=== PATIENT | male | born 1985 | race American Indian/Alaskan Native ===

== ENCOUNTER 2018-03-15 07:24 | Day surgery (SDC) | payer OTHER ==
[2018-03-15 07:56] VITALS: BMI 23.8
[2018-03-15] MEDS ORDERED: (Novolin R) Insulin Human Regular 100 units/ml vial IV ONE (08:15)
[2018-03-15] MEDS ORDERED: Propofol 10 mg/ml Inj (20 ML) ONE (09:40)
--- NOTE | 2018-03-15 09:44 | CP.SDSHP ---
Same Day Surgery H & P - History Proposed Procedure: EGD Pre-Op Diagnosis: SEE NOTES - Previous Medical/Surgical History Endocrine/Metabolic: Diabetes Neuro: Other Misc: Other Pain: 4.Moderate Pain - Allergies Allergies: Allergies No Known Allergies Allergy (Verified 08/03/16 12:43) - Physical Exam General Appearance: N Vital Signs: Vital Signs 03/15/18 08:06 Temperature 97.1 F L Pulse Rate 67 Respiratory 16 Rate Blood Pressure 119/72 O2 Sat by Pulse 99 Oximetry Mental Status: Alert & Oriented x3 Neuro: WNL Heart: WNL Lungs: WNL GI: Other - {Optional Preform as Required} Breast: WNL Abdomen: Other Rectal: Other Integument: WNL : WNL Ortho: Other ENT: WNL - Impression Pt. Evaluated Today:Candidate for Anesthesia & Procedure: Yes - Date & Time Time: 09:44 Short Stay Discharge - Short Stay Discharge Admitting Diagnosis/Reason for Visit: GASTROINTESTINAL HEMORRHAGE, UNSPECIFIED Disposition: HOME/ ROUTINE
[2018-03-15] MEDS ORDERED: Naloxone 0.4 mg/ml Inj (Adult) ONE (09:49)
[2018-03-15 10:19] VITALS: O2SAT 100
[2018-03-15 11:02] VITALS: BP 160/64; PULSE 66; RESP 15; TEMP 97.8
== END 2018-03-15 10:20 | disposition home or self-care (01) ==
LOC: C.ENDO 07:24
PROVIDERS: ATTEND Specialist
DX: K92.2 Gastrointestinal hemorrhage, unspecified (principal); K92.1 Melena; E11.9 Type 2 diabetes mellitus without complications; B37.81 Candidal esophagitis; K29.50 Unspecified chronic gastritis without bleeding
CPT/HCPCS: 43239; 82948; 88305; J2001; J2704; J3010; J7040

== ENCOUNTER 2018-11-22 07:36 | Day surgery (SDC) | payer MEDICARE, OTHER ==
[2018-11-22 08:39] VITALS: BMI 27.8
--- NOTE | 2018-11-22 09:04 | CP.SDSHP ---
Same Day Surgery H & P - History Proposed Procedure: EGD Pre-Op Diagnosis: SEE NOTES - Previous Medical/Surgical History Endocrine/Metabolic: Diabetes, Other Neuro: Other Misc: Other Pain: 4.Moderate Pain - Allergies Allergies: Allergies No Known Allergies Allergy (Verified 11/22/18 08:39) - Physical Exam General Appearance: N Vital Signs: Vital Signs 11/22/18 08:12 Temperature 97.7 F Pulse Rate 71 Respiratory 18 Rate Blood Pressure 126/74 O2 Sat by Pulse 100 Oximetry Mental Status: Alert & Oriented x3 Neuro: WNL Heart: Other Lungs: WNL GI: Other - {Optional Preform as Required} Breast: WNL Abdomen: Other Rectal: Other Integument: WNL : WNL Ortho: Other ENT: WNL - Impression Pt. Evaluated Today:Candidate for Anesthesia & Procedure: Yes - Date & Time Time: 09:05 Short Stay Discharge - Short Stay Discharge Admitting Diagnosis/Reason for Visit: DYSPEPSIA Disposition: HOME/ ROUTINE
[2018-11-22] MEDS ORDERED: Propofol 10 mg/ml Inj (20 ML) ONE (09:11)
[2018-11-22 10:58] VITALS: BP 131/75; PULSE 73; RESP 18; TEMP 97.9; O2SAT 100
== END 2018-11-22 10:45 | disposition home or self-care (01) ==
LOC: C.ENDO 07:36
PROVIDERS: ATTEND Specialist
DX: K29.50 Unspecified chronic gastritis without bleeding (principal); K20.8 Other esophagitis; E11.9 Type 2 diabetes mellitus without complications; K44.9 Diaphragmatic hernia without obstruction or gangrene
CPT/HCPCS: 43239; 88305; J1885; J2001; J2704; J2765

== ENCOUNTER 2018-12-06 08:44 | Day surgery (SDC) | payer MEDICARE, OTHER ==
[2018-12-06] MEDS ORDERED: Lactated Ringer's 1,000 ML IV ONE (11:30)
--- NOTE | 2018-12-06 11:35 | CP.SDSHP ---
Same Day Surgery H & P - History Proposed Procedure: COLONSCOPY Pre-Op Diagnosis: SEE NOTES - Previous Medical/Surgical History Endocrine/Metabolic: Diabetes, Other Misc: Other Pain: 4.Moderate Pain - Allergies Allergies: Allergies No Known Allergies Allergy (Verified 12/06/18 10:07) - Physical Exam General Appearance: N Vital Signs: Vital Signs 12/06/18 09:45 Temperature 98.9 F Pulse Rate 72 Respiratory 20 Rate Blood Pressure 134/70 O2 Sat by Pulse 99 Oximetry Mental Status: Alert & Oriented x3 Neuro: WNL Heart: WNL Lungs: WNL GI: Other - {Optional Preform as Required} Breast: WNL Abdomen: Other Rectal: Other Integument: WNL : WNL Ortho: Other ENT: WNL - Impression Pt. Evaluated Today:Candidate for Anesthesia & Procedure: Yes Short Stay Discharge - Short Stay Discharge Admitting Diagnosis/Reason for Visit: DIARRHEA, UNSPECIFIED Disposition: HOME/ ROUTINE
[2018-12-06] MEDS ORDERED: Lidocaine Hydrochloride 5 ML INJ ONE (11:37)
[2018-12-06] MEDS ORDERED: Propofol 10 mg/ml Inj (20 ML) ONE (11:37)
[2018-12-06 12:09] VITALS: TEMP 97.5
[2018-12-06] MEDS ORDERED: Belladonna-Phenobarbital PO ONE (12:20)
[2018-12-06 12:21] VITALS: O2SAT 100
[2018-12-06 13:02] VITALS: BP 131/67; PULSE 65; RESP 16
== END 2018-12-06 12:55 | disposition home or self-care (01) ==
LOC: C.ENDO 08:44
PROVIDERS: ATTEND Specialist
DX: R19.7 Diarrhea, unspecified (principal); K58.9 Irritable bowel syndrome, unspecified; K64.8 Other hemorrhoids
CPT/HCPCS: 45380; 82948; 88305; J2704; J7120